=== PATIENT | female | born 1990 | race Caucasian/White ===

== ENCOUNTER 2016-04-03 04:11 | Inpatient (IN) | payer BC, OTHER ==
[2016-04-03] MEDS ORDERED: DEXTROSE 5%-LACTATED RINGERS 500 ML IV SCH (04:20)
[2016-04-03 05:18] LABS: BASOPHIL 0.7 % (0-2.0); EOSINOPHIL 0.7 % (0-4.5); MCHC 31.8 g/dl (32.0-36.0); MEAN CELL VOLUME 75.4 fl (80-96); MEAN PLT VOLUME 10.2 fl (7.5-11.1); NEUTROPHILS 71.5 % (42.8-82.8); PLATELET COUNT 254 K/MM3 (134-434); RDW 14.4 % (11.6-15.6); WHITE BLOOD COUNT 11.4 K/mm3 (4.0-10.0)
[2016-04-03] MEDS ORDERED: DEXTROSE 5%-LACTATED RINGERS 1,000 ML IV SCH (05:20)
[2016-04-03 05:29] LABS: INR 0.96 (0.82-1.09); PROTHROMBIN TIME (PATIENT) 10.6 SEC (9.98-11.88)
[2016-04-03 05:36] LABS: CREATININE 0.9 mg/dL (0.55-1.02)
[2016-04-03 05:39] VITALS: BMI 25.7
--- NOTE | 2016-04-03 05:55 | HP ---
Past Medical History - Primary Care Physician PCP:: Jamila Soria - Admission Chief Complaint: 25 yo P0 @ 36.5 wks with LOF, clear, some ctx, No VB, +FM History Source: Medical Record - Past Medical History ...: 1 ...Para: 0 ...Term: 0 ...: 0 ...Spon : 0 ...Induced : 0 ...Multiple Gestation: 0 ...LMP: 07/23/15 ... Weeks Gestation by Dates: 36.3 ...EDC by Dates: 04/28/16 ...EDC by Sono: 04/26/16 - Past Surgical History Past Surgical History: Yes: None Hx Myomectomy: No Hx Transabdominal Cerclage: No - Smoking History Smoking history: Never smoked - Alcohol/Substance Use Hx Alcohol Use: No History of Substance Use: reports: None - Social History History of Recent Travel: No Home Medications - Allergies Allergies/Adverse Reactions: Allergies Allergy/AdvReac Type Severity Reaction Status Date / Time No Known Allergies Allergy Verified 04/03/16 05:08 - Home Medications Home Medications: Ambulatory Orders Vit/Iron Fumarate/FA [ Tablet] 1 each PO DAILY 04/03/16 Review of Systems - Review of Systems Constitutional: reports: No Symptoms Cardiovascular: reports: No Symptoms Respiratory: reports: No Symptoms Gastrointestinal: reports: No Symptoms Hematology/Lymphatic: reports: No Symptoms Psychiatric: reports: No Symptoms Physical Exam - Maternity Vital Signs: Vital Signs Temperature 98.2 F 04/03/16 04:11 Pulse Rate 92 H 04/03/16 04:11 Respiratory Rate 20 04/03/16 04:11 Blood Pressure 111/83 04/03/16 04:11 O2 Sat by Pulse Oximetry (%) Constitutional: Yes: Well Nourished Cardiovascular: Yes: WNL Lungs: Clear to auscultation - Abdominal Exam/OB Fundal Height: 36 Contractions: Yes Intensity: Mild (Q4 min) Monitor Mode: External - Vaginal Exam/OB Vaginal Bleediing: No Dilatation (cm): 2 Effacement (%): 75 Amniotic Membrane Status: Ruptured Nitrazine Test: Positive Amniotic Fluid: Yes: Clear Presentation: Vertex/Position Station: -3 - Physical Exam Extremities: Yes: WNL Psychiatric: Yes: WNL - Labs Lab Results: CBC, BMP 04/03/16 04:55 04/03/16 04:55 Hemorrhage Risk Assessment - Risk Factors Risk Score: 0 Risk Level: Low Risk Assessment/Plan 25 yo P0 @ 36.5wks with PPRom close to term in early labor, GBS neg PNC reviewed, unremarkable Current MF status reasuring Admit to L&D Labs, IVF Start slow Pitocin @ 1MU/min Pain currently controlled
[2016-04-03] MEDS ORDERED: OXYTOCIN 15 UNITS/ LR 250 ML 250 ML IVPB SCH (06:15)
[2016-04-03 06:28] LABS: HIV 1 & 2 AB NEGATIVE; HIV 1 AGp24 NEGATIVE
[2016-04-03] MEDS ORDERED: PROMETHAZINE HCL 25 MG/1 ML VIAL IVPB ONE (06:45)
[2016-04-03] MEDS ORDERED: BUTORPHANOL TARTRATE 1 MG/ML VIAL IVPB ONE (06:45)
[2016-04-03] MEDS ORDERED: ELECTROLYTE-148 SOLN 1,000 ML IV SCH (07:50)
[2016-04-03] MEDS ORDERED: FENTANYL/BUPIVACAINE/NS/PF - PCEA - 50 ML DISP.SYRIN EP SCH (08:15)
[2016-04-03] MEDS ORDERED: TUBERCULIN PPD 5 TU/0.1ML SYRINGE (IN PATIENT USE ONLY) ID ONE (10:00)
[2016-04-03] MEDS: D5W-LR W/ 20 UNITS OXYTOCIN 1,000 ML IV SCH ×2 (10:30→18:16)
--- NOTE | 2016-04-03 10:53 | PN ---
Progress Note, Labor Vaginal Exam #1 Labor Exam Date: 04/03/16 Labor Exam Time: 10:03 Heart Rate (range): series of 4x2 min prolonged decels Dilatation: FD Effacement (%): 100 Amniotic Membrane Status: Ruptured Presentation: Vertex/Position Station: +3 (O2 by face mask, FSE placed for improved monitoring, Peds to the room, Patient pushing very effectively)
--- NOTE | 2016-04-03 10:55 | PN ---
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
[2016-04-03 11:01] LABS: ARTERIAL BLD GAS O2 SATURATION 25.2 % (90-98.9); ARTERIAL BLOOD GAS BASE EXCESS -7.8 meq/l (-2-2); ARTERIAL BLOOD GAS HCO3 22.5 meq/L (22-26); ARTERIAL BLOOD GAS PO2 18.2 mmHg (80-100)
[2016-04-03 11:04] LABS: ARTERIAL BLD GAS O2 SATURATION 49.1 % (90-98.9); ARTERIAL BLOOD GAS BASE EXCESS -6.2 meq/l (-2-2); ARTERIAL BLOOD GAS HCO3 20.6 meq/L (22-26); ARTERIAL BLOOD GAS PO2 24.3 mmHg (80-100)
[2016-04-03 11:06] LABS: LPM/O2% 8L; PT. ON O2? YES
[2016-04-03 11:07] LABS: ON ANTICOAG? CORD BLOOD; TYPE OF O2 SIMPLE MASK
[2016-04-03 11:08] LABS: ARTERIAL BLOOD GAS pH 7.17 (7.35-7.45); PT'S TEMP ARTERIAL SAMPLE
[2016-04-03] MEDS ORDERED: BISACODYL 10 MG SUPP.RECT RC PRN (11:10)
[2016-04-03] MEDS ORDERED: METHYLERGONOVINE MALEATE 0.2 MG/1 ML AMP IM PRN (11:10)
[2016-04-03] MEDS ORDERED: BENZOCAINE 20% 57 GM BOTTLE TP PRN (11:10)
[2016-04-03] MEDS ORDERED: WITCH HAZEL 50% (TUCKS) 40 PAD/JAR PAD TP PRN (11:10)
[2016-04-03] MEDS ORDERED: BENZOCAINE 28 GM HEMORRHOIDAL OINTMENT TP PRN (11:10)
[2016-04-03 11:11] LABS: LPM/O2% 8L; PT. ON O2? YES; TYPE OF O2 SIMPLE MASK
[2016-04-03 11:12] LABS: ON ANTICOAG? CORD BLOOD; PT'S TEMP VENOUS SAMPLE
[2016-04-03 11:13] LABS: ARTERIAL BLOOD GAS pH 7.27 (7.35-7.45)
[2016-04-03] MEDS ORDERED: D5W-LR W/ 20 UNITS OXYTOCIN 1,000 ML IV SCH (11:45)
[2016-04-03] MEDS: ACETAMINOPHEN 325 MG TABLET (FP) PO PRN ×2 (17:00→21:34)
[2016-04-03] MEDS: FERROUS SO4 325 MG TABLET (FP) PO SCH (21:34)
[2016-04-03] MEDS: SENNOSIDES/DOCUSATE COMBO (SENNA PLUS) TABLET (UD) PO PRN (21:34)
[2016-04-03] MEDS: IBUPROFEN 600 MG TABLET (FP) PO PRN (21:36)
[2016-04-04] MEDS: ACETAMINOPHEN 325 MG TABLET (FP) PO PRN ×4 (05:46→21:09)
[2016-04-04] MEDS: IBUPROFEN 600 MG TABLET (FP) PO PRN ×4 (05:47→21:10)
[2016-04-04 08:17] LABS: BASOPHIL 0.1 % (0-2.0); EOSINOPHIL 0.7 % (0-4.5); MCH 24.6 pg (25.7-33.7); MCHC 32.9 g/dl (32.0-36.0); MEAN CELL VOLUME 74.7 fl (80-96); MEAN PLT VOLUME 9.2 fl (7.5-11.1); NEUTROPHILS 86.6 % (42.8-82.8); PLATELET COUNT 163 K/MM3 (134-434); RDW 14.2 % (11.6-15.6); WHITE BLOOD COUNT 15.9 K/mm3 (4.0-10.0)
[2016-04-04] MEDS: FERROUS SO4 325 MG TABLET (FP) PO SCH ×2 (09:33→21:09)
[2016-04-04] MEDS: PRENATAL VITAMINS W/ FOLIC ACID TABLET (FP) PO SCH (09:33)
--- NOTE | 2016-04-04 10:00 | PN ---
Post Progress Note - Subjective Subjective: 25yo P0 s/p voiding, tolerating PO, no complains Post Day: 1 Type of Delivery: Vital Signs: Vital Signs Temperature 97.9 F 04/04/16 05:16 Pulse Rate 67 04/04/16 05:16 Respiratory Rate 20 04/04/16 05:16 Blood Pressure 110/69 04/04/16 05:16 O2 Sat by Pulse Oximetry (%) 100 04/03/16 11:15 Breast Exam: Yes: Soft Uterus: Yes: Fundus Firm Abdomen/GI: Yes: Abdomen soft, Tolerating PO Lochia: Yes: Rubra Lochia, amount: Small Extremities: Yes: Calves non-tender Perineum: Yes: Laceration Activity: Ambulating - Labs Labs: CBC WBC 15.9 K/mm3 (4.0-10.0) H D 04/04/16 06:35 RBC 4.14 M/mm3 (3.60-5.2) 04/04/16 06:35 Hgb 10.2 GM/dL (10.7-15.3) L D 04/04/16 06:35 Hct 30.9 % (32.4-45.2) L D 04/04/16 06:35 MCV 74.7 fl (80-96) L 04/04/16 06:35 MCHC 32.9 g/dl (32.0-36.0) 04/04/16 06:35 RDW 14.2 % (11.6-15.6) 04/04/16 06:35 Plt Count 163 K/MM3 (134-434) D 04/04/16 06:35 MPV 9.2 fl (7.5-11.1) 04/04/16 06:35 Neutrophils % 86.6 % (42.8-82.8) H D 04/04/16 06:35 Lymphocytes % 8.2 % (8-40) D 04/04/16 06:35 Monocytes % 4.4 % (3.8-10.2) 04/04/16 06:35 Eosinophils % 0.7 % (0-4.5) 04/04/16 06:35 Basophils % 0.1 % (0-2.0) 04/04/16 06:35 Assessment/Plan 25 yo P0 s/p NDVD near term VSS, Afibrile H/H stable Rh+ cont current care [place] boy, circumcised Plan to d/c in am
[2016-04-04] MEDS: SENNOSIDES/DOCUSATE COMBO (SENNA PLUS) TABLET (UD) PO PRN (21:09)
[2016-04-05] MEDS: IBUPROFEN 600 MG TABLET (FP) PO PRN ×2 (04:02→09:03)
[2016-04-05] MEDS: ACETAMINOPHEN 325 MG TABLET (FP) PO PRN ×2 (04:02→09:04)
[2016-04-05] MEDS: PRENATAL VITAMINS W/ FOLIC ACID TABLET (FP) PO SCH (09:02)
[2016-04-05] MEDS: FERROUS SO4 325 MG TABLET (FP) PO SCH (09:02)
[2016-04-05 09:40] VITALS: BP 133/67; PULSE 56; TEMP 97.6
== END 2016-04-05 12:21 | disposition home or self-care (01) | DRG 775 ==
LOC: JLDR 04:11 → J3W 12:20
PROVIDERS: ADMIT Obstetrics & Gynecology; ATTEND Obstetrics & Gynecology
PROC: 0HQ9XZZ Repair Perineum Skin, External Approach (ICD-10-PCS; principal; 2016-04-03)
PROC: 10E0XZZ Delivery of Products of Conception, External Approach (ICD-10-PCS; 2016-04-03)
DX: O70.0 First degree perineal laceration during delivery (principal); Z3A.36 36 weeks gestation of pregnancy; Z37.0 Single live birth
CPT/HCPCS: 36415; 36600; 59409; 80048; 82803; 85025; 85610; 85730; 86593; 86850; 86900; 86901; 87389